=== PATIENT | female | born 1995 | race Caucasian/White ===

== ENCOUNTER 2018-10-12 01:19 | Emergency (ER) | payer BC ==
[~2018-10-12] VITALS: Ht 170.2 cm; Wt 68.0 kg
[2018-10-12] MEDS ORDERED: NOHOMEMEDICATIONS (01:45)
[2018-10-12 03:18] VITALS: BP 111/57
== END 2018-10-12 03:19 | disposition home or self-care (01) ==
LOC: ER 01:19
DX: F10.129 Alcohol abuse with intoxication, unspecified (principal); J45.909 Unspecified asthma, uncomplicated